=== PATIENT | female | born 2000 | race Caucasian/White ===

== ENCOUNTER 2023-08-25 08:19 | Emergency (ER) | payer OTHER, SELFPAY ==
--- NOTE | 2023-08-25 08:34 | ED.URI ---
HPI - URI/Sore Throat General Chief Complaint: Upper Respiratory Infection Stated Complaint: Sinus Infection Time Seen by Provider: 08/25/23 08:35 Source: patient and RN notes reviewed Mode of arrival: ambulatory Limitations: no limitations History of Present Illness HPI Narrative: 22-year-old female presents with concern for 5 day history of cough hoarse voice, nasal congestion and drainage. Reports chills and sweats overnight. She reports her throat hurts in the morning but improves throughout the day. She reports episode of vomiting at the beginning of her symptoms. She reports she works at a daycare. She has not been taking an spaf-ejl-dwkqtlf medications. MD elicited complaint: cough and nasal congestion Related Data Allergies Allergy/AdvReac Type Severity Reaction Status Date / Time No Known Allergies Allergy Verified 08/25/23 08:25 Review of Systems Review of Systems: CONSTITUTIONAL: Denies malaise. Reports chills, sweats EYES: Denies visual changes, redness, or discharge. ENT: Reports rhinorrhea, congestion, morning sore throat, hoarse voice. Denies sinus pain, otalgia CARDIOVASCULAR: Denies chest pain, palpitations, or edema. RESPIRATORY: Reports cough. Denies dyspnea. GASTROINTESTINAL: Denies abdominal pain, nausea, vomiting, diarrhea SKIN: Denies rash or itching. MUSCULOSKELETAL: Denies myalgia. NEUROLOGIC: Denies headache. All systems reviewed & are unremarkable except as noted in HPI and below PMFSH Comments At time of signature, agree with nursing past medical, surgical, social and family history. There is no relevant family history pertinent to the presenting complaint Exam Narrative: GENERAL: Well-appearing, well-nourished, and in no acute distress. HEAD: Normocephalic EYES: PERRLA, conjunctivae clear ENT: Nares clear, turbinates edematous and erythematous, clear discharge. Mucous membranes moist. TM pearly jones with dull light reflex bilaterally; no tragal tenderness. Oropharynx not erythematous without lesions. Tonsils not enlarged and without exudate, no drooling, no hoarseness, no trismus, uvula midline. NECK: Supple. No lymphadenopathy CHEST: Clear to auscultation, breath sounds equal. No wheezing, rhonchi, rales, or stridor. No respiratory distress, speaks in full sentences. HEART: Regular rate and rhythm. No murmur heard. SKIN: Warm, dry, no rash. NEURO: Alert and oriented x3. PSYCH: Normal mood and affect Course Course Emergency Course: Patient is aware of diagnosis, understands and agrees to treatment plan. Anticipatory guidance given. Patient agrees to follow-up as directed and is aware of reasons to seek care at the emergency department. Portions of this record may have been created with voice recognition software Level of Care: Express Care Visit Vital Signs Vital signs: Reviewed. MDM - URI/Sore Throat MDM Narrative Medical decision making narrative: Differential diagnosis considered: Mcarthur virus, strep pharyngitis, allergic rhinitis, upper respiratory tract infection, sinusitis, rhinosinusitis, nasopharyngitis. viral pharyngitis, otitis media, otitis externa, pneumonia, bronchitis, viral cough syndrome, viral syndrome, and influenza. Exam findings show no acute concerns or changes; patient is non-toxic appearing and is in no distress. Patient is appropriate for outpatient treatment and follow-up. Lab Data Attestation: I reviewed the patient's lab results. Critical Care Time Critical Care Time Critical Care Time: No Discharge Plan Discharge Clinical Impression: Upper respiratory infection with cough and congestion Patient Disposition: Home, Self-Care Condition: Stable Instructions: Upper Respiratory Infection (ED) Additional Instructions: Viral illness may last between 7-21 days; antibiotics do not cure viral illness and are NOT recommended at this time. Recommend antihistamine such as Benadryl at night time and Zyrtec or Luna during the day Also,
[2023-08-25 08:36] VITALS: BP 110/63; PULSE 68; RESP 16; TEMP 36.8; O2SAT 100
== END 2023-08-25 08:46 | disposition home or self-care (01) ==
PROVIDERS: Emergency Provider Nurse Practitioner
DX: J06.9 Acute upper respiratory infection, unspecified (principal); R05.9 Cough, unspecified; Z86.16 Personal history of COVID-19
CPT/HCPCS: 99213; G0463

== ENCOUNTER 2024-12-08 09:33 | Emergency (ER) | payer OTHER, SELFPAY ==
--- OUTSIDE RECORDS SUMMARY | 2024-12-08 09:36 | XMS_ITS | Clinical Summary ---
[facility] Organization [facility] Address [address] [place] [id number] Care Team Providers Care Traffic Agent Name Role Phone Venessa Arthur Primary Care Provider [phone] Allergies No known active allergies Medications guaiFENesin-cod eine (GUAITUSS AC) liquid 100-10 mg/5 mLIndications:A cute cough Take 5-10 mL by mouth nightly as needed for cough 120 mL 08/23/2024 Active Active Problems Problem Noted Date Diagnosed Date DANAE (generalized anxiety disorder) 11/24/2021 Assessment & Plan (10/04/2023 8:25 AM CDT): Patient reports she is doing well without medication. Continue current care. Follow-up as needed for new or worsening symptoms. Marijuana abuse, continuous 11/24/2021 Difficulty sleeping 11/24/2021 Irritable bowel syndrome with diarrhea Assessment & Plan (10/04/2023 8:25 AM CDT): Doing well since cutting back on vaping. Continue current care. Follow-up as needed. Cyclical vomiting 11/13/2020 Fatigue 11/13/2020 Cold intolerance 11/13/2020 Diarrhea 11/13/2020 Weight loss 11/13/2020 Hyperreflexia 11/13/2020 Tremors of nervous system 11/13/2020 Dysmenorrhea 01/08/2018 Mild single current episode of major depressive disorder 10/28/2016 Overview (09/11/2019): - on effexor XR 75 mg daily x 4 mo; Pt still having multiple episodes of crying and sadness during the day. She is interested in increasing the dose. No SI/HI. Assessment & Plan (10/04/2023 8:25 AM CDT): Patient reports she is doing well without medication. Continue current care. Follow-up as needed for new or worsening symptoms. Assessment & Plan (06/17/2020 4:43 PM STOVE POLISHER): - stable - continue current medication Assessment & Plan (12/11/2019 3:18 PM CDT): - stable - continue Effexor XR 150mg daily - f/u in 6 mo Assessment & Plan (09/11/2019 4:36 PM STOVE POLISHER): - increase effexor XR to 150mg daily Resolved Problems Problem Noted Date Diagnosed Date Resolved Date Routine adult health maintenance 10/04/2023 10/04/2023 Assessment & Plan (10/04/2023 8:26 AM CDT): Health Maintenance: -PCV20: N/A -Tdap vaccine: 2023 -Influenza vaccine: due -Shingles vaccine: N/A -Colonoscopy: N/A -Last WWE: referred to NETWORK TECHNICIAN -Last Mammogram: N/A -Last DEXA: N/A -Last eye exam: N/A -Last MHA: N/A Tdap administered today. TB test ordered. Physical exam completed. Follow-up in 1 year or sooner as needed. Encounter for initial prescr iption of contraceptive pills 07/21/2022 10/04/2023 Marijuana use 11/13/2020 03/02/2021 Thyroid enlargement 11/13/2020 11/25/19 Periumbilical abdominal pain 11/13/2020 11/24/2021 Abdominal pain 06/17/2020 11/13/2020 Assessment & Plan (06/17/2020 4:44 PM STOVE POLISHER): - suspect due to constipation though anxiety/IBS could be contributor - rec increased dietary fiber - rec smaller more frequent meals - f/u if sx not improved Constipation 06/17/2020 11/24/2021 Assessment & Plan (06/17/2020 4:44 PM STOVE POLISHER): - uncontrolled - increase fiber intake - rec OTC miralax prn Anxiety 10/28/2016 11/24/2021 Overview (09/11/2019): - on effexor XR 75mg daily x 4 mo; anxiety improved. Assessment & Plan (06/17/2020 4:43 PM STOVE POLISHER): - stable - continue current medication Assessment & Plan (12/11/2019 3:18 PM CDT): - stable - continue Effexor XR 150mg daily - f/u in 6 mo Assessment & Plan (09/11/2019 4:35 PM STOVE POLISHER): - will increase effexor XR to 150mg daily due to continued depressive sx. - f/u in 3 mo Immunizations Immunization Administration Dates Next Due DTaP 5 Pertussis 09/27/2006, 3,03/28/2002,02/04,2001 HPV, Unspecified 03/12/2015,04/22/2014, 4 Hep A, Unspecified 11/03/2009,03/27/2008 Hep B, Unspecified 07/08/2002,2001, 002 HiB 03/27/2003, 2,02/04/2002,11/26 IPV 09/27/2006, 2,02/04/2002,11/26 Influenza, Quadrivalent, Spl it, Preservative Free, Intramuscular 06/17/2020 Influenza, Unspecified 04/16/2024(Deferr ed: Patient Refused),04/16/2023(Deferred: Patient decision),06/30/2022(Deferred: Patient decision),05/18/2022(Deferred: Patient decision),04/16/2021(Deferred: Patient decision),04/16/2021(Deferred: Patient decision),02/24/2018,07/18/2013,2008 MMR 09/27/2006,10/08/2002 Meningococcal ACWY, Unspecified 02/07/2013 Meningococcal MCV4P (Menactra) 01/21/2019 Pneumococcal Conjugate, Unspecified 10/08/2002,0 02/04/2002,2001 Tdap 10/04/2023,02/16/2012 Varicella 09/27/2006,10/08/2002 Surgical History Surgery Date Site/Laterality Comments OTHER SURGICAL HISTORY miscarriage WISDOM TOOTH EXTRACTION Medical History Medical History Date Comments Anxiety Depression 2012 Marijuana use 11/13/2020 Family History Medical History Relation Name Comments Asthma Brother Danny Diabetes Maternal Grandmother Heart disease Maternal Grandmother Heart defect Mother Hearing loss Paternal Grandfather Relation Name Status Comments Brother Danny Father Alive Maternal Grandfather Alive Maternal Grandmother Alive Mother Alive Paternal Grandfather Paternal Grandmother Social History Tobacco Use Types Packs/Day Years Used Date Smoking Tobacco: Every Day Vaping Smokeless Tobacco: Never Tobacco Cessation:Ready to Q uit: Not Asked; Counseling Given: Not Answered Alcohol Use Standard Drinks/Week Comments Never 0 (1 standard drink = 0.6 oz pur e alcohol) AUDIT-C Answer Date Recorded Q1: How often do you have a drink containing alcohol? Never 10/04/2023 Q2: How many drinks containi ng alcohol do you have on a typical day when you are drinking? Patient does not drink Q3: How often do you have si x or more drinks on one occasion? Never 10/04/2023 PHQ-2 Answer Date Recorded PHQ-2 Total Score (If total score is 3 or more points, staff should administer the PHQ-9) 0 10/04/2023 Comments No Sex and Gender Information Value Date Recorded Sex Assigned at Not on file Legal Sex Female 12:14 AM STOVE POLISHER Gender Identity Not on file Sexual Orientation Not on file Obstetrics History Para Term AB IAB SAB Ectopic Multiple Livin g Live Births 2 1 0 0 1 0 1 0 0 0 0 Date Outcome GA Total Labor Labor/2nd/3rd Weight Sex Type Anes PTL Rosy A1 A5 Name Clin Para SAB Last Filed Vital Signs Vital Sign Reading Time Taken Comments Blood Pressure 112/62 08/23/2024 12:21 PM STOVE POLISHER Pulse 99 08/23/2024 12:21 PM STOVE POLISHER Temperature 36.9 C (98.4 F) 08/23/2024 12:21 PM STOVE POLISHER Respiratory Rate 16 08/23/2024 12:21 PM STOVE POLISHER Oxygen Saturation 99% 08/23/2024 12:21 PM STOVE POLISHER Inhaled Oxygen Concentration - - Weight 54.5 kg (120 lb 3.2 oz) 08/23/2024 12:21 PM STOVE POLISHER Height 165.1 cm (5' 5) 08/23/2024 12:21 PM STOVE POLISHER Body Mass Index 20 08/23/2024 12:21 PM STOVE POLISHER Plan of Treatment Health Maintenance Due Date Last Done Comments Cervical Cancer Screening 2001 Chlamydia and Gonorrhea (GC/ CT) Screening 2001 Hepatitis C Screening 2001 Pneumococcal vaccine <65 (1 of 1 - PPSV23) 09/25/2007 10/08/2002, 02/04/2002, 2001 Meningococcal B Vaccine (1 o f 2 - Standard) 2017 Depression Screening 10/03/2024 10/04/2023, 10/04/2023, 07/21/2022, Additional history exists Regular Well Visit/Exam 18-64 10/03/2024 10/04/2023, 06/17/2020 Influenza Vaccine (Season Ended) 2025 06/17/2020, 02/24/2018, 07/18/2013, Additional history exists DTaP/Tdap/Td Vaccine (8 - Td or Tdap) 10/03/2033 10/04/2023, 02/16/2012, 09/27/2006, Additional history exists Hepatitis B Screening Completed 07/08/2002 , 2001, 2001 Varicella Vaccines Completed 09/27/2006, 10/08/2002 HPV Vaccines Completed 03/12/2015, 01/2014, 02/10/2014 Insurance [facility] HMO/PPO Address: [address] [place] [address] [employer] Care Teams Traffic Agent Relationship Specialty Start Date End Date Venessa Arthur PA [address] [place] [address] PCP - General Critical Care Med 11/13/20
--- OUTSIDE RECORDS SUMMARY | 2024-12-08 09:36 | XMS_ITS | Referral Summary ---
Author Organization [facility] Address [address] [place] [id number] Care Team Providers Care Trust Evaluation Supervisor Name Role Phone Venessa Arthur Primary Care Provider [phone] Allergies No known active allergies Medications guaiFENesin-cod [...] symptoms. Assessment & Plan (06/17/2020 4:43 PM HAND FINISHER): - stable - continue current medication Assessment & Plan (12/11/2019 3:18 PM CDT): - stable - continue Effexor XR 150mg daily - f/u in 6 mo Assessment & Plan (09/11/2019 4:36 PM HAND FINISHER): - increase effexor XR to 150mg daily Resolved Problems Problem Noted Date Diagnosed Date Resolved Date Routine adult health maintenance 10/04/2023 10/04/2023 Assessment & Plan (10/04/2023 8:26 AM CDT): Health Maintenance: -PCV20: N/A -Tdap vaccine: 2023 -Influenza vaccine: due -Shingles vaccine: N/A -Colonoscopy: N/A -Last WWE: referred to [facility] -Last Mammogram: N/A -Last DEXA: N/A -Last eye exam: N/A -Last MHA: N/A Tdap administered today. TB test ordered. Physical exam completed. Follow-up in 1 year or sooner as needed. Encounter for initial prescr iption of contraceptive pills 07/21/2022 10/04/2023 Marijuana use 11/13/2020 03/02/2021 Thyroid enlargement 11/13/2020 11/25/19 Periumbilical abdominal pain 11/13/2020 11/24/2021 Abdominal pain 06/17/2020 11/13/2020 Assessment & Plan (06/17/2020 4:44 PM HAND FINISHER): - suspect due to constipation though anxiety/IBS could be contributor - rec increased dietary fiber - rec smaller more frequent meals - f/u if sx not improved Constipation 06/17/2020 11/24/2021 Assessment & Plan (06/17/2020 4:44 PM HAND FINISHER): - uncontrolled - increase fiber intake - rec OTC miralax prn Anxiety 10/28/2016 11/24/2021 Overview (09/11/2019): - on effexor XR 75mg daily x 4 mo; anxiety improved. Assessment & Plan (06/17/2020 4:43 PM HAND FINISHER): - stable - continue current medication Assessment & Plan (12/11/2019 3:18 PM CDT): - stable - continue Effexor XR 150mg daily - f/u in 6 mo Assessment & Plan (09/11/2019 4:35 PM HAND FINISHER): - will increase effexor XR to 150mg [...] Unspecified 10/08/2002,0 02/04/2002,2001 Tdap 10/04/2023,02/16/2012 Varicella 09/27/2006,10/08/2002 Social History Tobacco Use Types Packs/Day Years [...] on file Legal Sex Female 12:14 AM HAND FINISHER Gender Identity Not on file Sexual Orientation Not on file Last Filed Vital Signs Vital Sign Reading Time Taken Comments Blood Pressure 112/62 08/23/2024 12:21 PM HAND FINISHER Pulse 99 08/23/2024 12:21 PM HAND FINISHER Temperature 36.9 C (98.4 F) 08/23/2024 12:21 PM HAND FINISHER Respiratory Rate 16 08/23/2024 12:21 PM HAND FINISHER Oxygen Saturation 99% 08/23/2024 12:21 PM HAND FINISHER Inhaled Oxygen Concentration - - Weight 54.5 kg (120 lb 3.2 oz) 08/23/2024 12:21 PM HAND FINISHER Height 165.1 cm (5' 5) 08/23/2024 12:21 PM HAND FINISHER Body Mass Index 20 08/23/2024 12:21 PM HAND FINISHER Plan of Treatment Not on file Insurance [employer] [facility] H[facility]/PPO Address: [address] [place] [address] [employer] Care Teams Trust Evaluation Supervisor Relationship Specialty Start Date End Date Venessa Arthur PA [address] [place] [address] PCP - General Critical Care Med 11/13/20
[2024-12-08 09:47] VITALS: BP 107/71; PULSE 94; RESP 18; TEMP 36.7; O2SAT 100
--- NOTE | 2024-12-08 09:58 | ED_ITS ---
HPI - General Adult General Chief complaint: Eye Problems Stated complaint: pink eye History of Present Illness HPI narrative: Bisi Hernandez is a 24 y/o Female presents today with complaints of having itchiness and redness to her right eye that started yesterday and today positive yellowish drainage from her right eye. Denies any vision changes no other symptoms. Related Data Allergies Allergy/AdvReac Type Severity Reaction Status Date / Time No Known Allergies Allergy Verified 12/08/24 09:48 Review of Systems Review of Systems: All systems reviewed & are unremarkable except as noted in HPI and below Exam Narrative: GENERAL: Well-appearing, well-nourished, and in no acute distress. HEAD: Normocephalic, atraumatic. EYES: PERRLA and EOMI + yellow drainage from right eye with mild injected conjunctiva ENT: Nares clear, no rhinorrhea or epistaxis. Mucous membranes moist. Oropharynx without tonsillar hypertrophy exudate or other lesions. NECK: Supple. No adenopathy or masses. No carotid bruits or JVD CHEST: Clear to auscultation. No respiratory distress. No wheezes rales or rhonchi HEART: Regular rate and rhythm. No murmur heard. Normal peripheral pulses. ABDOMEN: Soft, nontender, nondistended, normal active bowel sounds. EXTREMITIES: Normal range of motion. No edema. SKIN: Warm, dry, no rash. NEURO: No focal deficits. Alert and oriented x3. PSYCH: Normal mood and affect. Course Course Level of Care: Express Care Visit Vital Signs Vital signs: Vital Signs Temperature 36.7 C 12/08/24 09:47 Pulse Rate 94 12/08/24 09:47 Respiratory Rate 18 12/08/24 09:47 Blood Pressure 107/71 12/08/24 09:47 Pulse Oximetry 100 12/08/24 09:47 Oxygen Delivery Room Air 12/08/24 09:47 Temperature 36.7 C 12/08/24 09:47 Pulse Rate 94 12/08/24 09:47 Respiratory Rate 18 12/08/24 09:47 Blood Pressure 107/71 12/08/24 09:47 Pulse Oximetry 100 12/08/24 09:47 Oxygen Delivery Room Air 12/08/24 09:47 Medical Decision Making [facility] Narrative Medical decision making narrative: 24 y/o female presents wtih symptoms and exam consistent with bacterial conjunctivitis No vision changes will start pt on polymyxin eye drops close PCP follow up Medical Records Medical records reviewed: Yes I reviewed the external patient's medical records. Vital Signs Vital Signs: Vital Signs Temperature 36.7 C 12/08/24 09:47 Pulse Rate 94 12/08/24 09:47 Respiratory Rate 18 12/08/24 09:47 Blood Pressure 107/71 12/08/24 09:47 Pulse Oximetry 100 12/08/24 09:47 Oxygen Delivery Room Air 12/08/24 09:47 Temperature 36.7 C 12/08/24 09:47 Pulse Rate 94 12/08/24 09:47 Respiratory Rate 18 12/08/24 09:47 Blood Pressure 107/71 12/08/24 09:47 Pulse Oximetry 100 12/08/24 09:47 Oxygen Delivery Room Air 12/08/24 09:47 vitals reviewed by me Discharge Plan Discharge Clinical Impression: Bacterial conjunctivitis Patient Disposition: Home Condition: Stable Instructions: Antibiotic Form, Conjunctivitis (ED) Additional Instructions: Start using the eye drops to your right eye one drop every 3-4 hours while awake not to exceed 6 doses in 24 hours Follow up with your pCP in 1 week If you develop any worsening symptoms or have other concerns you may return here or proceed to the ER Patient Language: [place] Prescriptions: New polymyxin B sulf-trimethoprim 10,000 unit- 1 mg/mL drops 1 drp RIGHT EYE Q3H 10 Days Qty: 10 0RF Rx Instructions: while awake; do not exceed 6 doses in 24 hours for 10 days Follow-up/Referrals: Jerson,RADHA Clifford [Primary Care Provider] - Time of Disposition: 10:03
== END 2024-12-08 10:07 | disposition home or self-care (01) ==
PROVIDERS: Emergency Provider Nurse Practitioner Family; PCP Physician Assistant
DX: H10.9 Unspecified conjunctivitis (principal)
CPT/HCPCS: 99213; G0463

== ENCOUNTER 2025-07-06 10:15 | Emergency (ER) | payer OTHER, SELFPAY ==
--- OUTSIDE RECORDS SUMMARY | 2025-07-06 10:20 | XMS_ITS | Clinical Summary ---
Author Organization [facility] Address [facility] [place] [address] Care Team Providers Care Hvac Design Mechanical Engineer Name Role Phone Venessa Arthur PA-C Primary Care Provider [phone] Allergies No known active allergies Medications ondansetron 4 MG disintegrating tablet Take 1 tablet (4 mg total) by mouth every 8 (eight) hours as needed for Nausea. 10 tablet 0 Active HYDROcodone-acetami nophen (NORCO) 5-325 MG tabletIndications:A cute Pain < 3 Day Supply Take 1 tablet by mouth every 6 (six) hours as needed for Pain. Indications : Acute Pain < 3 Day Supply 10 tablet 5 Active ondansetron (ZOFRAN-ODT) 4 MG disintegrating tablet Take 1 tablet (4 mg total) by mouth every 8 (eight) hours as needed for Nausea. 20 tablet 5 Active amoxicillin-clavula quentin (AUGMENTIN) 875-125 MG tablet Take 1 tablet (875 mg total) by mouth 2 (two) times daily for 10 days. 20 tablet 5 07/05/20 25 predniSONE (DELTASONE) 20 MG tablet Take 2 tablets (40 mg total) by mouth daily for 5 days. 10 tablet 5 06/30/20 25 Encounters Date Type Department Care Team Description 06/25/2025 6:20 AM INTERVENTIONAL TECH - 06/25/2025 10:05 AM [facility] Emergency [facility] [place] [address] Irene Sanford MD Abdominal Pain (Vomiting, diarrhea, spasms) Discharge Disposition: Home or Self Care (Routine Discharge) 06/25/2025 Travel from Last 3 Months Family History Medical History Relation Comments Heart Disease Mother Relation Status Comments Mother Alive Social History Tobacco Use Types Packs/Day Years Used Date Smoking Tobacco: Never Smokeless Tobacco: Never Alcohol Use Standard Drinks/Week Comments No 0 (1 standard drink = 0.6 oz pur e alcohol) Comments No Sex and Gender Information Value Date Recorded Sex Assigned at Female 06/25/2025 6:35 AM INTERVENTIONAL TECH Legal Sex Female 6:07 PM CDT Gender Identity Female 06/25/2025 6:35 AM INTERVENTIONAL TECH Sexual Orientation Not on file Last Filed Vital Signs Vital Sign Reading Time Taken Comments Blood Pressure 123/90 06/25/2025 6:13 AM INTERVENTIONAL TECH Pulse 95 06/25/2025 6:13 AM INTERVENTIONAL TECH Temperature 36.6 C (97.8 F) 06/25/2025 6:13 AM INTERVENTIONAL TECH Respiratory Rate 18 06/25/2025 6:13 AM INTERVENTIONAL TECH Oxygen Saturation 98% 06/25/2025 6:13 AM INTERVENTIONAL TECH Inhaled Oxygen Concentration - - Weight 49.5 kg (109 lb 2 oz) 06/25/2025 6:13 AM INTERVENTIONAL TECH Height 154.9 cm (5' 1) 06/25/2025 6:13 AM INTERVENTIONAL TECH Body Mass Index 20.62 06/25/2025 6:13 AM INTERVENTIONAL TECH Plan of Treatment Health Maintenance Due Date Last Done Comments Cervical Cancer Screening Pap Smear (Age 21 to 29) Every 3 Years 2001 Cervical Cancer Screening 2001 Annual Physical 2004 Chlamydia Screening Females ages 16-24 2017 Meningococcal B Vaccine (1 of 2 - Standard) 2017 Hepatitis C 09/25/2019 COVID-19 Vaccine ( season) 2025 Influenza Adult (#1) 2025 06/17/2020, 02/24/2018, 07/18/2013, Additional history exists DTaP, Tdap and Td Vaccines (8 - Td or Tdap) 10/03/2033 10/04/2023, 02/16/2012, 09/27/2006, Additional history exists Hepatitis B Vaccines Completed 07/08/2002, 2001, 2001 Pneumococcal Vaccine: Pediatrics (0 to 5 Years) and At-Risk Patients (6 to 49 Years) Aged Out 10/08/2002, 02/04/2002, 2001 No longer eligible based on patient's age to complete this topic Hepatitis A Vaccines Completed 11/03/2009, 03/27/20 08 HPV Vaccines Completed 03/12/2015, 01/2014, 02/10/2014 Meningococcal Vaccine Completed 01/21/2019, 013 RSV Immunizations Under 20 Months Aged Out No longer eligible based on patient's age to complete this topic Procedures Procedure Name Priority Date/Time Associated Diagnosis Comments CT ABD+PEL W CON STAT 06/25/2025 8:05 AM INTERVENTIONAL TECH CHORIONIC GONADOTROPIN HCG QL STAT 06/25/2025 6:47 AM INTERVENTIONAL TECH LIPASE STAT 06/25/2025 6:41 AM INTERVENTIONAL TECH BASIC METABOLIC PANEL STAT 06/25/2025 6:41 AM INTERVENTIONAL TECH HC CBC AUTO W/AUTO DIFF STAT 06/25/2025 6:41 AM INTERVENTIONAL TECH from Last 3 Months Results * CT ABD+PEL W IV CON ONLY (06/25/2025 8:05 AM INTERVENTIONAL TECH) Anatomical Region Laterality Modality Abdomen Computed Tomogra phy 06/25/2025 8:46 AM INTERVENTIONAL TECH Impressions 06/25/2025 9:20 AM INTERVENTIONAL TECH IMPRESSION: POSSIBLE INDICATIONS OF ACUTE ON CHRONIC INFECTIOUS OR INFLAMMATORY COLITIS, DISCUSSED ABOVE. NO PNEUMATOSIS OR FREE AIR. NORMAL APPEARANCE OF THE TERMINAL ILEUM. INCIDENTAL NOTE MADE OF A SUSPECTED 1 X 2 CM URETHRAL DIVERTICULUM OR URETHROCELE, OR SKENE'S DUCT CYST, OF UNCERTAIN SIGNIFICANCE. CLINICAL CORRELATION AND POSSIBLE GYNECOLOGY/UROLOGY CONSULTATION MAY BE APPROPRIATE. SMALL AMOUNT OF FREE FLUID IN THE DEPENDENT PELVIS, POTENTIALLY PHYSIOLOGIC IN A FEMALE PATIENT OF THIS AGE. Referred By: Interpreted By: Kartik Ramirez MD, 06/25/2025 8:46 AM Narrative 06/25/2025 9:20 AM INTERVENTIONAL TECH [address] [address] EXAM: CT ABD+PEL W CON INDICATION: 5 day history of worsening abdominal pain with vomiting and diarrhea. TECHNIQUE: Axial CT study of the abdomen and pelvis, from the lung bases to the pubic symphysis, was performed. Patient received 100 mL Isovue-370 with no adverse reaction. Coronal and sagittal reformatted images were created and reviewed. A dose lowering technique was used for this procedure, which may include, but is not limited to, dose reduction technique, automated exposure control, the use of iterative reconstruction, and ALARA (As Low As Reasonably Achievable) / Image Gently techniques. COMPARISON EXAM: None FINDINGS: No consolidation or effusion in either lung base. Liver is unremarkable with no mass or bile duct dilatation. No gallstone or gallbladder abnormality. Normal size spleen. No pancreatic or peripancreatic abnormality. Normal adrenal glands. No renal mass or hydronephrosis. Normal renal parenchymal enhancement. Urinary bladder is unremarkable. There is a approximate 2 cm in length and 1 cm in width probable urethrocele/urethral diverticulum or [place]'s duct cyst. Correlation with any associated symptoms such as recurrent infection or micturition difficulties is recommended. If concern warrants, gynecology or urology consultation may be appropriate. Uterus is slightly tilted to the right and anteverted. Bilateral ovarian follicles. No bowel obstruction or free air. The appendix is normal. Terminal ileum appears normal. Although the colon is collapsed, there is probable mild thickening of the colon wall and fatty infiltration of the submucosa, suggesting the possibility of underlying acute on chronic infectious or inflammatory colitis. Small amount of free fluid in the dependent pelvis, possibly physiologic in a female patient of this age. No adenopathy. Normal caliber abdominal aorta. Skeletal structures are intact. Procedure Note Kartik Ramirez MD - 06/25/2025 [facility] [address] [place], [place] [address] EXAM: CT ABD+PEL W CON INDICATION: 5 day history of worsening abdominal pain with vomiting anddiarrhea. TECHNIQUE: Axial CT study of the abdomen and pelvis, from the lung basesto the pubic symphysis, was performed. Patient received 100 mL Isovue-370with no adverse reaction. Coronal and sagittal reformatted images werecreated and reviewed. A dose lowering technique was used for this procedure, which may include,but is not limited to, dose reduction technique, automated exposurecontrol, the use of iterative reconstruction, and ALARA (As Low AsReasonably Achievable) / Image Gently techniques. COMPARISON EXAM: None FINDINGS: No consolidation or effusion in either lung base. Liver isunremarkable with no mass or bile duct dilatation. No gallstone orgallbladder abnormality. Normal size spleen. No pancreatic orperipancreatic abnormality. Normal adrenal glands. No renal mass orhydronephrosis. Normal renal parenchymal enhancement. Urinary bladder isunremarkable. There is a approximate 2 cm in length and 1 cm in widthprobable urethrocele/urethral diverticulum or [place]'s duct cyst.Correlation with any associated symptoms such as recurrent infection ormicturition difficulties is recommended. If concern warrants, gynecologyor urology consultation may be appropriate. Uterus is slightly tilted tothe right and anteverted. Bilateral ovarian follicles. No bowelobstruction or free air. The appendix is normal. Terminal ileum appearsnormal. Although the colon is collapsed, there is probable mildthickening of the colon wall and fatty infiltration of the submucosa,suggesting the possibility of underlying acute on chronic infectious orinflammatory colitis. Small amount of free fluid in the dependent pelvis,possibly physiologic in a female patient of this age. No adenopathy.Normal caliber abdominal aorta. Skeletal structures are intact. IMPRESSION: POSSIBLE INDICATIONS OF ACUTE ON CHRONIC INFECTIOUS ORINFLAMMATORY COLITIS, DISCUSSED ABOVE. NO PNEUMATOSIS OR FREE AIR.NORMAL APPEARANCE OF THE TERMINAL ILEUM. INCIDENTAL NOTE MADE OF A SUSPECTED 1 X 2 CM URETHRAL DIVERTICULUM ORURETHROCELE, OR SKENE'S DUCT CYST, OF UNCERTAIN SIGNIFICANCE. CLINICALCORRELATION AND POSSIBLE GYNECOLOGY/UROLOGY CONSULTATION MAY BEAPPROPRIATE. SMALL AMOUNT OF FREE FLUID IN THE DEPENDENT PELVIS, POTENTIALLYPHYSIOLOGIC IN A FEMALE PATIENT OF THIS AGE. Referred By: Interpreted By: Kartik Ramirez MD, 06/25/2025 8:46 AM Irene Sanford MD CT Final Result * Qualitative HCG (06/25/2025 6:47 AM INTERVENTIONAL TECH) Pathologist [facility] PREG SCREEN-SERUM NEGATIVE 06/25/2025 7:07 AM INTERVENTIONAL TECH [facility] BLOOD VENOUS BLOOD SPECIMEN / Unknown 06/25/2025 6:47 AM INTERVENTIONAL TECH Irene Sanford MD LABORATORY Final Result [facility] [address] [place] [address], [place] [phone] * LIPASE (06/25/2025 6:41 AM INTERVENTIONAL TECH) [facility] LIPASE 17 13 - 75 UNITS/L 06/25/2025 7:20 AM INTERVENTIONAL TECH [facility] BLOOD VENOUS BLOOD SPECIMEN / Unknown 06/25/2025 6:41 AM INTERVENTIONAL TECH Irene Sanford MD LABORATORY Final Result [facility] [address] [place] [address], [place] [phone] * (ABNORMAL) CBC W/DIFF AUTOMATED (06/25/2025 6:41 AM INTERVENTIONAL TECH) [facility] WBC 7.96 4.5 - 11.0 x10'3/uL 06/25/2025 7:03 AM INTERVENTIONAL TECH [facility] RBC 4.33 4.20 - 5.40 x10'6/uL 06/25/2025 7:03 AM [facility] HGB 13.7 12.0 - 16.0 G/DL 06/25/2025 7:03 AM INTERVENTIONAL TECH [facility] HCT 38.8 38.0 - 48.0 % 06/25/2025 7:03 AM [facility] MCV 89.6 81.0 - 99.0 FL 06/25/2025 7:03 AM [facility] MCH 31.6(H) 27.0 - 31.0 PG 06/25/2025 7:03 AM [facility] MCHC 35.3 32.0 - 36.0 G/DL 06/25/2025 7:03 AM [facility] RDW 11.9 11.5 - 14.5 % 06/25/2025 7:03 AM [facility] PLT 227 130 - 400 x10'3/uL 06/25/2025 7:03 AM [facility] MPV 11.6 9.3 - 12.2 FL 06/25/2025 7:03 AM [facility] DIFFERENTIAL TYPE AUTOMATED DIFFERENTIAL 06/25/2025 7:03 AM [facility] NEUTROPHILS % 70.2 % 06/25/2025 7:03 AM [facility] LYMPHOCYTES % 23.1 % 06/25/2025 7:03 AM [facility] MONOCYTES % 4.8 % 06/25/2025 7:03 AM [facility] EOSINOPHILS 0.8 % 06/25/2025 7:03 AM [facility] BASOPHILS 0.8 % 06/25/2025 7:03 AM [facility] IMMATURE GRANS % 0.3 % 06/25/20 7:03 AM [facility] ABS. NEUTROPHILS 5.60 1.80 - 7.70 x10'3/uL 06/25/2025 7:03 AM [facility] ABS. LYMPHOCYTES 1.84 1.00 - 4.80 x10'3/uL 06/25/2025 7:03 AM INTERVENTIONAL TECH [facility] ABS. MONOCYTES 0.38 0.24 - 0.86 x10'3/uL 06/25/2025 7:03 AM INTERVENTIONAL TECH [facility] ABS. EOSINOPHILS 0.06 0.04 - 0.36 x10'3/uL 06/25/2025 7:03 AM INTERVENTIONAL TECH [facility] ABS. BASOPHILS 0.06 0.01 - 0.08 x10'3/uL 06/25/2025 7:03 AM [facility] ABS. IMMATURE GRANULOCYTES 0.02 0.00 - 0.49 x10'3/uL 06/25/2025 7:03 AM [facility] BLOOD VENOUS BLOOD SPECIMEN / Unknown 06/25/2025 6:41 AM INTERVENTIONAL TECH us Irene Sanford MD LABORATORY Final Result [facility] [address] [place] [address], * BASIC METABOLIC PANEL (06/25/2025 6:41 AM INTERVENTIONAL TECH) [facility] GLUCOSE 85 70 - 99 MG/DL 06/25/2025 7:20 AM INTERVENTIONAL TECH [facility] BUN 13 7 - 18 MG/DL 06/25/2025 7:20 AM [facility] CREATININE S/P/B 0.67 0.55 - 1.02 MG/DL 06/25/2025 7:20 AM [facility] SODIUM S/P/B 140 136 - 145 MMOL/L 06/25/2025 7:20 AM [facility] POTASSIUM S/P/B 3.8 3.5 - 5.1 MMOL/L 06/25/2025 7:20 AM [facility] CHLORIDE S/P/B 108 97 - 115 MMOL/L 06/25/2025 7:20 AM [facility] CO2 25.9 21 - 32 MMOL/L 06/25/2025 7:20 AM [facility] CALCIUM S/P/B 9.1 8.5 - 10.1 MG/DL 06/25/2025 7:20 AM [facility] ANION GAP 6.1 2 - 10 MMOL/L 06/25/2025 7:20 AM [facility] BUN CREATININE RATIO 19.5 6 - 26 06/25/2025 7:20 AM [facility] GFR ESTIMATE >90 >90 ML/MIN/1.7 3 M2 06/25/2025 7:20 AM [facility] Comment: NOTE: eGFR is not calculated for patients <18 years of age or gender unknown. This is an estimated GFR calculation using the new CKD EPI creatinine equation without race and so does not require a correction factor for race. This estimated GFR should not be used for calculating drug doses. BLOOD VENOUS BLOOD SPECIMEN / Unknown 06/25/2025 6:41 AM INTERVENTIONAL TECH Irene Sanford MD LABORATORY Final Result [facility] [address] [place] [address], from Last 3 Months Insurance [facility] Care Teams Hvac Design Mechanical Engineer Relationship Specialty Start Date End Date Venessa Arthur PA-C [address] [place] [address] PCP - General PHYSICIAN BUSINESS ACCOUNT SPECIALIST 06/25/25
--- OUTSIDE RECORDS SUMMARY | 2025-07-06 10:20 | XMS_ITS | Clinical Summary ---
Author Organization [employer] [facility] lin Address [address] [facility] [place] [address] Care Team Providers Care Repairer Kiln Car Name Role Phone Irene Hurd MD Primary Care Provider Allergies No known active allergies Medications No known medications Social History Tobacco Use Types Packs/Day Years Used Date Smoking Tobacco: Never Assessed Comments Unknown Sex and Gender Information Value Date Recorded Sex Assigned at Not on file Legal Sex Female 6:53 PM EDT Gender Identity Not on file Sexual Orientation Not on file Last Filed Vital Signs Vital Sign Reading Time Taken Comments Blood Pressure 118/67 02/09/2016 7:18 PM EDT Pulse 117 02/09/2016 7:18 PM EDT Temperature 38.6 C (101.5 F) 02/09/2016 7:18 PM EDT Respiratory Rate 16 02/09/2016 7:18 PM EDT Oxygen Saturation 96% 02/09/2016 7:18 PM EDT Inhaled Oxygen Concentration - - Weight 54.4 kg (120 lb) 02/09/2016 7:18 PM EDT Height 165.1 cm (5' 5) 02/09/2016 7:18 PM EDT Body Mass Index 19.97 02/09/2016 7:18 PM EDT Plan of Treatment Not on file Medical Devices Not on file Insurance [facility] Care Teams Repairer Kiln Car Relationship Specialty Start Date End Date Irene Hurd MD PCP - General Pediatrics 02/09/16
--- OUTSIDE RECORDS SUMMARY | 2025-07-06 10:20 | XMS_ITS | Clinical Summary ---
Author Organization [facility] Address [address] [place] [id number] Care Team Providers Care Dishcloth Folder Name Role Phone Venessa Negrete Primary Care Provider [phone] Allergies No known active allergies Medications busPIRone (BUSPAR) 10 mg tabletIndication s:Generalized Anxiety Disorder Take 1 tablet (10 mg total) by mouth 3 (three) times a day as needed (anxiety) 60 tablet 01/07/2025 Active escitalopram (LEXAPRO) 10 mg tabletIndication s:Moderate episode of recurrent major depressive disorder (HCC),DANAE (generalized anxiety disorder) TAKE 1 TABLET BY MOUTH EVERY DAY 90 tablet 1 01/29/2025 Active Active Problems Problem Noted Date Diagnosed Date DANAE (generalized anxiety disorder) 11/24/2021 Assessment & Plan (01/07/2025 8:27 AM CDT): Orders: escitalopram (LEXAPRO) 10 mg tablet; Take 1 tablet (10 mg total) by mouth daily busPIRone (BUSPAR) 10 mg tablet; Take 1 tablet (10 mg total) by mouth 3 (three) times a day as needed (anxiety) Assessment & Plan (10/04/2023 8:25 AM CDT): [...] Tremors of nervous system 11/13/2020 Dysmenorrhea 01/08/2018 Assessment & Plan (01/07/2025 8:27 AM CDT): Orders: Ambulatory referral to Obstetrics / Gynecology; Future Mild single current episode of major depressive disorder 10/28/2016 Overview (09/11/2019): - on effexor XR 75 mg daily x 4 mo; Pt still having multiple episodes of crying and sadness during the day. She is interested in increasing the dose. No SI/HI. Assessment & Plan (01/07/2025 8:27 AM CDT): Orders: escitalopram (LEXAPRO) 10 mg tablet; Take 1 tablet (10 mg total) by mouth daily busPIRone (BUSPAR) 10 mg tablet; Take 1 tablet (10 mg total) by mouth 3 (three) times a day as needed (anxiety) Assessment & Plan (10/04/2023 8:25 AM CDT): Patient reports she is doing well without medication. Continue current care. Follow-up as needed for new or worsening symptoms. Assessment & Plan (06/17/2020 4:43 PM MASTER AUTOMOTIVE TECHNICIAN): - stable - continue current medication Assessment & Plan (12/11/2019 3:18 PM CDT): - stable - continue Effexor XR 150mg daily - f/u in 6 mo Assessment & Plan (09/11/2019 4:36 PM MASTER AUTOMOTIVE TECHNICIAN): - increase effexor XR to 150mg daily Resolved Problems Problem Noted Date Diagnosed Date Resolved Date Routine adult health maintenance 10/04/2023 10/04/2023 Assessment & Plan (10/04/2023 8:26 AM CDT): Health Maintenance: -PCV20: N/A -Tdap vaccine: 2023 -Influenza vaccine: due -Shingles vaccine: N/A -Colonoscopy: N/A -Last WWE: referred to CUTTING AND PRINTING MACHINE OPERATOR -Last Mammogram: N/A -Last DEXA: N/A -Last eye exam: N/A -Last MHA: N/A Tdap administered today. TB test ordered. Physical exam completed. Follow-up in 1 year or sooner as needed. Encounter for initial prescr iption of contraceptive pills 07/21/2022 10/04/2023 Marijuana use 11/13/2020 03/02/2021 Thyroid enlargement 11/13/2020 11/25/19 Periumbilical abdominal pain 11/13/2020 11/24/2021 Abdominal pain 06/17/2020 11/13/2020 Assessment & Plan (06/17/2020 4:44 PM MASTER AUTOMOTIVE TECHNICIAN): - suspect due to constipation though anxiety/IBS could be contributor - rec increased dietary fiber - rec smaller more frequent meals - f/u if sx not improved Constipation 06/17/2020 11/24/2021 Assessment & Plan (06/17/2020 4:44 PM MASTER AUTOMOTIVE TECHNICIAN): - uncontrolled - increase fiber intake - rec OTC miralax prn Anxiety 10/28/2016 11/24/2021 Overview (09/11/2019): - on effexor XR 75mg daily x 4 mo; anxiety improved. Assessment & Plan (06/17/2020 4:43 PM MASTER AUTOMOTIVE TECHNICIAN): - stable - continue current medication Assessment & Plan (12/11/2019 3:18 PM CDT): - stable - continue Effexor XR 150mg daily - f/u in 6 mo Assessment & Plan (09/11/2019 4:35 PM MASTER AUTOMOTIVE TECHNICIAN): - will increase effexor XR to 150mg [...] often do you have a drink containing alc ohol? Monthly or less 01/07/2025 Q2: How many drinks containi ng alcohol do you have on a typical day when you are drinking? 1 or 2 01/07/2025 Q3: How often do you have si x or more drinks on one occasion? Never 01/07/2025 PHQ-2 Answer Date Recorded PHQ-2 Total Score (If total score is 3 or more points, staff should administer the PHQ-9) 5 01/07/2025 PHQ-9 Answer Date Recorded PHQ-9 Total Score 23 01/07/2025 Comments No Sex and Gender Information Value Date Recorded Sex Assigned at Not on file Legal Sex Female 12:14 AM MASTER AUTOMOTIVE TECHNICIAN Gender Identity Not on file Sexual Orientation [...] Sign Reading Time Taken Comments Blood Pressure 110/70 01/07/2025 7:49 AM CDT Pulse 85 01/07/2025 7:49 AM CDT Temperature 36.9 C (98.4 F) 01/07/2025 7:49 AM CDT Respiratory Rate 16 01/07/2025 7:49 AM CDT Oxygen Saturation 97% 01/07/2025 7:49 AM CDT Inhaled Oxygen Concentration - - Weight 56.3 kg (124 lb 3.2 oz) 01/07/2025 7:49 A M CDT Height 165.1 cm (5' 5) 01/07/2025 7:49 AM CDT Body Mass Index 20.67 01/07/2025 7:49 AM CDT Plan of Treatment Health Maintenance Due Date Last Done Comments Cervical Cancer Screening 2001 Chlamydia and Gonorrhea (GC/ CT) Screening 2001 Hepatitis C Screening 2001 Pneumococcal vaccine <65 (1 of 1 - PPSV23, PCV20, or PCV21) 09/25/2007 10/08/2002, 02/04/2002, 2001 Meningococcal B Vaccine (1 o f 2 - Standard) 2017 Regular Well Visit/Exam 18-64 10/03/2024 10/04/2023, 06/17/2020 Influenza Vaccine (#1) 2025 , 02/24/2018, 07/18/2013, Additional history exists Depression Screening 01/07/2026 01/07/2025, 01/07/2025, 10/04/2023, Additional history exists DTaP/Tdap/Td Vaccine (8 - Td or Tdap) 10/03/2033 10/04/2023, 02/16/2012, 09/27/2006, Additional history exists Hepatitis B Screening Completed 07/08/2002 , 2001, 2001 Varicella Vaccines Completed 09/27/2006, 10/08/2002 HPV Vaccines Completed 03/12/2015, 01/2014, 02/10/2014 Insurance [employer] [facility] Member Subscriber Plan / Payer (Ef fective 2018-Present) Name:HernandezBisi Relation to Subscriber:Child Name:HERNANDEZFERNANDO Atilio Date of :[birth year]99 (Home) Address: [address] [place] [address] Payer ID:[id number] (NAIC) Type: [employer] Address: [address] [place] [id number] Care Teams Dishcloth Folder Relationship Specialty Start Date End Date Venessa Negrete PA [address] [place], [place] [address] PCP - General Critical Care Med 11/13/20
--- OUTSIDE RECORDS SUMMARY | 2025-07-06 10:20 | XMS_ITS | Encounter Summary ---
Author Organization [facility] Address [address] [place] [id number] Care Team Providers Care Softball Core Molder Name Role Phone Keisha Blakely MD Primary Care Provider Unavailable Yesy De Los Santos MD Primary Care Provider [phone] Keron Barker MD Primary Care Provider [phone] Venessa Arthur PA-C Primary Care Provider [phone] Encounter Details Date Type Department Care Team (Late st Contact Info) Description 05/20/2017 Abstract [place], [place] [id number] Keisha Blakely MD Social History Tobacco Use Types Packs/Day Years Used Date Smoking Tobacco: Never Assessed Comments Unknown Sex and Gender Information Value Date Recorded Sex Assigned at Female 06/25/2025 6:35 AM GENERATOR SWITCHBOARD OPERATOR Legal Sex Female 6:07 PM CDT Gender Identity Female 06/25/2025 6:35 AM GENERATOR SWITCHBOARD OPERATOR Sexual Orientation Not on file documented as of this encounter Plan of Treatment Not on file documented as of this encounter Visit Diagnoses Not on filedocumented in this encounter Care Teams Softball Core Molder Relationship Specialty Start Date End Date Keisha Blakely MD PCP - General 07/25/15 Yesy De Los Santos MD PCP - General FAMILY PRACTICE 12/05/17 08/21/19 Keron Barker MD PCP - General FAMILY PRACTICE 08/22/19 06/24/25 Venessa Arthur PA-C [address] [place] [address] PCP - General PHYSICIAN MANAGER CONTINUOUS IMPROVEMENT 06/25/25 documented as of this encounter
[2025-07-06 10:44] VITALS: BP 120/84; PULSE 81; RESP 16; TEMP 36.4; O2SAT 99
--- NOTE | 2025-07-06 10:55 | ED_ITS ---
HPI - Female Genitourinary General Chief complaint: Urogenital-Female Stated complaint: yeast Inf patient presents to the [facility] with complaints of vaginal irritation, vaginal discharge, vaginal itching that began over the last few days. Patient noted being on Augmentin and now Cipro for intestinal inflammation. No history of STDs, bacterial vaginosis, or yeast infection. Does have an upcoming visit with gynecology in August. Sexually active with same partner for 5 years no concerns for STDs. Denies fever, chills, body aches, Burning with urination, urinary frequency, back pain or flank pain. Related Data Home Medications ?Medication ?Instructions ?Recorded ?Confirmed ?Last Taken ?Type ciprofloxacin HCl 500 mg tablet mg 07/06/25 Unknown H istory dicyclomine 10 mg capsule mg 07/06/25 Unknown History escitalopram oxalate 10 mg tablet mg 07/06/25 Unknown History hydrocodone 5 mg-acetaminophen 325 tablet 07/06/25 Un known History mg tablet ondansetron 4 mg disintegrating mg 07/06/25 Unknown H istory tablet Allergies Allergy/AdvReac Type Severity Reaction Status Date / Time amoxicillin AdvReac Mild Other Verified 07/06/25 10:43 Review of Systems Constitutional: Constitutional: Reports as per HPI, Denies chills and Denies fatigue Eyes: Eyes: Reports no additional eye complaints ENT: Reports system reviewed and no additional complaints, except as documented Cardiovascular: Cardiovascular: Reports no additional cardiovascular complaints Respiratory: Respiratory: Reports no additional respiratory complaints Gastrointestinal: Gastrointestinal: Reports as per HPI, Reports abdominal pain, Denies bloating, Denies constipation, Denies heartburn, Reports diarrhea, Denies nausea and Denies vomiting Genitourinary: Genitourinary: Reports as per HPI, Denies abnormal vaginal bleeding, Denies hematuria, Denies nocturia, Denies genital lesions, Denies dysuria, Denies pelvic pain, Denies flank pain, Denies urinary incontinence and Reports vaginal discharge Musculoskeletal: Musculoskeletal: Reports as per HPI, Denies back pain and Denies myalgias Integumentary/Breasts: Skin/Breast: Reports as per HPI, Denies erythema, Denies rash and Denies skin ulcer Neurologic: Reports as per HPI and Denies weakness Psychiatric: Psychiatric: Reports no additional psychiatric complaints Endocrine: Endocrine: Reports no additional endocrine complaints Hematologic/Lymphatic: Hematologic/Lymphatic: Reports no additional hematologic/lymphatic complaints Allergic/Immunologic: Allergic/Immunologic: Reports no additional allergic/immunologic complaints Exam Const: General: healthy appearing and no acute distress Nutritional Appearance: well nourished Orientation/consciousness: patient oriented x3 Limitations: no limitations Resp: Effort & Inspection: normal respiratory effort Auscultation: clear to auscultation bilaterally Cardio: Rate: regular rate Rhythm: regular rhythm GI: Inspection: non-distended GI Palp: Yes Soft to palpation, Yes Tenderness to palpation present (GI) ( diffusely), No Guarding due to palpation present (GI), No Rigid due to palpation and No Hernia present Auscultation: normal bowel sounds : General: Yes bladder normal to palpation and Yes no CVA tenderness Other: declines pelvic exam Back/Spine/Pelvis: Back: no CVA tenderness Skin: General skin exam: normal color Rashes: no rashes Wounds: no wounds Neuro: General: patient oriented x3 Speech: normal speech Gait exam (Neuro): Normal gait present Psych: Appearance: grossly normal Mental Status: mental status grossly normal Affect: normal affect Attitude: cooperative Course Course Level of Care: Express Care Visit Vital Signs Vital signs: Vital Signs Temperature 97.6 F 07/06/25 10:44 Pulse Rate 81 07/06/25 10:44 Respiratory Rate 16 07/06/25 10:44 Blood Pressure 120/84 07/06/25 10:44 Pulse Oximetry 99 07/06/25 10:44 Oxygen Delivery Room Air 07/06/25 10:44 Temperature 97.6 F 07/06/25 10:44 Pulse Rate 81 07/06/25 10:44 Respiratory Rate 16 07/06/25 10:44 Blood Pressure 120/84 07/06/25 10:44 Pulse Oximetry 99 07/06/25 10:44 Oxygen Delivery Room Air 07/06/25 10:44 [facility] MDM Narrative Medical decision making narrative: Given recent antibiotic use likely yeast infection. Will place patient on fluconazole The patient was evaluated by myself in the express care. History is obtained from patient who is an independent historian and physical exam was performed. Available medical records were reviewed at this time. Exam findings show no acute concerns or changes; patient is non-toxic appearing and is in no distress. Patient is appropriate for outpatient treatment and follow-up. I have evaluated and discussed social determinants of health with the patient that could potentially impact subsequent diagnosis and treatment plans. Differential diagnosis and treatment plan were discussed with the patient. Patient agrees with discussion and after shared medical decision making agrees with plan of care. All questions were answered to the patient's satisfaction. Differential Diagnosis Differential Diagnosis: yeast infection, bacterial vaginosis, cystitis, Medical Records I have reviewed the following patient records and this information was taken into consideration when formulating the assessment and plan.: previous labs, previous ER visits, previous hospitalizations and previous clinic visits Discharge Plan Discharge Clinical Impression: Vaginal yeast infection Patient Disposition: Home Condition: Stable Instructions: Antibiotic Form, Yeast Infection (ED) Additional Instructions: take the fluconazole as directed. May repeat this dosing in 3 days if symptoms persist can also use a vaginal probiotic follow-up with gynecology if symptoms not resolved. Patient Language: Yi Prescriptions: New fluconazole 150 mg tablet 150 mg PO ONCE Qty: 2 0RF Rx Instructions: as a single dose No Action hydrocodone-acetaminophen 5-325 mg tablet ciprofloxacin HCl 500 mg tablet ondansetron 4 mg tablet,disintegrating dicyclomine 10 mg capsule escitalopram oxalate 10 mg tablet Follow-up/Referrals: Jerson,RADHA Clifford [Primary Care Provider, Unknown] Time of Disposition: 10:59
== END 2025-07-06 11:00 | disposition home or self-care (01) ==
PROVIDERS: Emergency Provider Nurse Practitioner Family; PCP Physician Assistant
DX: B37.31 Acute candidiasis of vulva and vagina (principal)
CPT/HCPCS: 99213; G0463